=== PATIENT | male | born 1950 | race Asian ===

== ENCOUNTER 2017-04-12 06:36 | Emergency (ER) | payer OTHER ==
[~2017-04-12] VITALS: Ht 182.9 cm; Wt 140.6 kg
[~2017-04-12 06:36] MED LIST: CLOP75TA2 PO; LISITAB PO; NIFE60TA5 PO; ZANTAC 75 PO
[2017-04-12 07:43] VITALS: BP 127/97; TEMP 97.9
== END 2017-04-12 07:44 | disposition home or self-care (01) ==
LOC: ED 06:36
DX: M16.11 Unilateral primary osteoarthritis, right hip (principal); E66.09 Other obesity due to excess calories
CPT/HCPCS: 96372; 99283; J1885

== ENCOUNTER 2017-08-09 00:48 | Emergency (ER) | payer OTHER ==
[~2017-08-09] VITALS: Ht 185.4 cm; Wt 162.4 kg
[2017-08-09 01:37] LABS: PLATELET COUNT 366 K/uL (142-355)
[2017-08-09 01:43] LABS: POTASSIUM 3.6 mmol/L (3.6-5.2)
[2017-08-09 02:10] LABS: PARTIAL THROMBOPLASTIN TIME 24.9 SECONDS (24.5-33.6)
[2017-08-09 02:54] VITALS: TEMP 98.4
[2017-08-09 03:14] VITALS: BP 136/76
== END 2017-08-09 03:34 | disposition short-term general hospital (02) ==
LOC: ED 00:48
DX: I21.4 Non-ST elevation (NSTEMI) myocardial infarction (principal)
CPT/HCPCS: 36415; 80053; 82550; 82553; 84484; 85027; 85610; 85730; 93005; 96372; 99284; J1650

== ENCOUNTER 2017-08-09 03:39 | Outpatient (CLI) | payer OTHER | END 2017-08-09 05:06 | disposition short-term general hospital (02) | LOC: AMB 03:39 | DX: I21.4 Non-ST elevation (NSTEMI) myocardial infarction (principal) | CPT/HCPCS: A0425; A0427 ==

== ENCOUNTER → 2017-08-22 16:58 | Outpatient (CLI) | payer OTHER | END | disposition home or self-care (01) | LOC: AMB 16:58 | DX: R22.0 Localized swelling, mass and lump, head (principal) ==

== ENCOUNTER 2021-02-16 17:48 | Emergency (ER) | payer OTHER ==
[~2021-02-16] VITALS: Ht 185.4 cm; Wt 140.6 kg
[2021-02-16 22:15] VITALS: BP 121/74; TEMP 98.9
== END 2021-02-16 22:15 | disposition home or self-care (01) ==
LOC: ED 17:48
DX: N39.0 Urinary tract infection, site not specified (principal); N30.91 Cystitis, unspecified with hematuria
CPT/HCPCS: 81000; 87077; 87086; 87088; 87186; 99283

== ENCOUNTER 2021-03-04 13:45 | Inpatient (IN) | payer OTHER ==
[~2021-03-04] VITALS: Ht 177.8 cm; Wt 155.7 kg
[2021-03-04] VITALS (17 sets, daily range): BP systolic 58–134; BP diastolic 39–87; TEMP 98.7–99.8
[2021-03-04 14:47] LABS: PLATELET COUNT 360 K/uL (142-355)
[2021-03-04 15:11] LABS: POTASSIUM 3.7 mmol/L (3.6-5.2)
--- NOTE | 2021-03-04 18:25 | NUR ---
PT HR [address] BLAKELY AT BEDSIDE. REC'D ORDER TO GIVE 1 LITER NS BOLUS X1 NOW. ALBUMIN 25% Q6HR X8.
--- NOTE | 2021-03-04 18:38 | NUR ---
FIRST ALBUMIN GIVEN AT THIS TIME.
--- NOTE | 2021-03-04 18:39 | NUR ---
KHLOE RT AT BS. PEEP DECREASED TO 5, TV DECREASED TO 500 PER MD ORDERS.
--- NOTE | 2021-03-04 18:40 | NUR ---
BP 112/59 MAP 71 HR 132 O2 94-95 RR 18
--- NOTE | 2021-03-04 18:42 | NUR ---
DECREASED TIDAL VOLUME TO 500 AND DECREASED PEEP FROM 7 TO 5
[2021-03-04] MEDS ORDERED: METO25TA2 PO (19:05)
[2021-03-04] MEDS ORDERED: PANTOPRAZOLE 40MG TA PO (19:05)
[2021-03-04] MEDS ORDERED: IPRATROPIUM/ INH (19:07)
[2021-03-04] MEDS ORDERED: ONDA4TAB3 PO (19:08)
[2021-03-04] MEDS ORDERED: BUDESONIDE0.5 MG/2 M INH (19:08)
[2021-03-04] MEDS ORDERED: MEDROL4 MG PO (19:08)
[2021-03-04] MEDS ORDERED: IVER3TAB PO (19:10)
--- NOTE | 2021-03-04 20:00 | NUR ---
Patient lying in bed, sedated, with eyes closed. VSS. Bed in low. locked position.
--- NOTE | 2021-03-04 20:05 | NUR ---
OGT inserted. Xray ordered to verify placement.
--- NOTE | 2021-03-04 22:00 | NUR ---
Patient lying in bed, sedated, resting with eyes closed. VSS. Bed in low, locked, position.
--- NOTE | 2021-03-05 | NUR ---
Patient lying in bed, sedated, resting with eyes closed. VSS. Bed in low, locked position.
[2021-03-05 00:01] VITALS: TEMP 97.9
--- NOTE | 2021-03-05 02:00 | NUR ---
Patient lying in bed, sedated, resting in bed. VSS. Bed in low, locked position.
[2021-03-05 02:35] VITALS: BP 133/74; TEMP 97.9; Ht 177.8 cm; Wt 155.7 kg
[2021-03-05 04:00] VITALS: TEMP 97
--- NOTE | 2021-03-05 04:00 | NUR ---
Patient lying in bed, sedated, resting with eyes closed. VSS. Bed in low, ocked position.
[2021-03-05 05:46] LABS: PLATELET COUNT 312 K/uL (142-355)
[2021-03-05 05:58] LABS: POTASSIUM 3.5 mmol/L (3.6-5.2)
--- NOTE | 2021-03-05 06:00 | NUR ---
Patient lying in bed, sedated, resting with eyes closed. VSS. Bed in low, locked position.
--- NOTE | 2021-03-05 08:21 | NUR ---
INCREAESE TIDAL VOLUME FROM 500 TO 550 UPED RR FROM 12 TO 14 AND INCREASED PEEP FOR 5 TO 7
--- NOTE | 2021-03-05 09:23 | NUR ---
PER DR BLAKELY ORDER DR BELTRAN CONSULTED FOR CENTRAL LINE PLACMENT . MESSAGE REC'D FROM DR BELTRAN HE WAS IN ER. AWAITING FURTHER CONTACT. WILL INFORM DR BLAKELY
--- NOTE | 2021-03-05 10:35 | NUR ---
DR RAMOS HERE TO CONSULT ON PT PER DR BLAKELY REQUEST. NO NEW ORDERS REC'D AT THE BEDSIDE WILL INFOMR DR BLAKELY
--- NOTE | 2021-03-05 11:03 | NUR ---
PT'S SALINAS REMAINS CLAMPED TO ATTEMPT TO COLLECT UA FOR LAB TEST. PT HAS NO URINARY OUTPUT FROM BEGINING OF SHIFT TO NOW. WILL CONT TO MONITOR.
--- NOTE | 2021-03-05 14:30 | NUR ---
DR. BELTRAN AT PT'S BEDSIDE TO PLACE CENTRAL LINE AT THIS TIME.
--- NOTE | 2021-03-05 15:00 | NUR ---
CENTRAL LINE TO RT SUBCLAVIN PER STERILE TECHNIQUE. NO DISTRESS OR PROBLEMS NOTED. ORDER PLACED FOR XRAY FOR LINE VERIFICATION,.
--- NOTE | 2021-03-05 18:01 | NUR ---
DR BLAKELY HERE AT THIS TIME. REPORTED TO HIM THAT PTS TEMP READING 94 AXILLARY. PT IS COOL TO THE TOUCH. WARM BLANKETS PLACED ON PT AT THIS TIME. ALL VS WNL AT THIS TIME. WILL CONT TO MONITOR.
--- NOTE | 2021-03-05 20:00 | NUR ---
Patient lying in bed, sedated, with eyes closed. VSS. Bed in low, locked position.
[2021-03-05 21:48] VITALS: TEMP 96.8
--- NOTE | 2021-03-05 22:00 | NUR ---
Patient lying in bed, sedated, with eyes closed. VSS. Bed in low, locked position.
--- NOTE | 2021-03-06 | NUR ---
Patient lying in bed, sedated, with eyes closed. VSS. Bed in low, locked position.
--- NOTE | 2021-03-06 01:52 | NUR ---
Patient lying in bed, sedated, with eyes closed. VSS. Bed in low, locked position.
[2021-03-06 04:00] VITALS: TEMP 97.6
--- NOTE | 2021-03-06 04:00 | NUR ---
Patient lying in bed, sedated, resting with eyes closed. VSS. Bed in low, locked position.
[2021-03-06 05:55] LABS: PLATELET COUNT 279 K/uL (142-355)
--- NOTE | 2021-03-06 08:00 | NUR ---
CRITICAL BUN 100 CREATININE 9.0 AND CALCIUM 6.[address] BLAKELY.
--- NOTE | 2021-03-06 13:00 | NUR ---
SPOKE WITH FAMILY (PTS DAUGHTER TO GIVE UPDATE)
--- NOTE | 2021-03-06 16:30 | NUR ---
RESP 40, PT SUCTIONED WITH INLINE SUCTION, ORAL CAVITY ALSO SUCTIONED, MODERATED AMT OF SECRETIONS REMOVED VIA INLINE. PT HAS WET EXP WHEEZE AT THIS TIME. SATS 88-90%.
--- NOTE | 2021-03-06 17:34 | NUR ---
DR BLAKELY IN TO SEE PT, ORDER RECIEVED
[2021-03-06 20:00] VITALS: TEMP 97.6
--- NOTE | 2021-03-06 23:20 | NUR ---
SPO2 AT 95% ON 100% FIO2. RT DECREASED FIOP2 TO 90%. SPO2 MAINTAINING AT 94-95%. WILL CONTINUE TO MONITOR AND WEAN TOLERATED.
--- NOTE | 2021-03-06 23:31 | NUR ---
LATE ENTRY: FAMILY UPDDATEDD ON PATIENTS CURRENT CONDITION
[2021-03-07] VITALS: TEMP 99.4
[2021-03-07 04:00] VITALS: TEMP 98.1
--- NOTE | 2021-03-07 04:00 | NUR ---
PATIENTS OUTPUT WAS LESS THAN 30MLS AN HOUR. ER DR WREN ORDERED A ONETIME DOSE OF LASIX IV 20MG
--- NOTE | 2021-03-07 05:45 | NUR ---
LAB AT BEDSIDE, BLOOD DRAWN FOR AM LABS. PATIENT IS RESTING COMFORTABBLY
[2021-03-07 05:59] LABS: PLATELET COUNT 258 K/uL (142-355)
--- NOTE | 2021-03-07 06:18 | NUR ---
POST ABG INCREASED PEEP TO 11.
--- NOTE | 2021-03-07 06:36 | NUR ---
PATIENT HAS BEEN READJUSTED IN BED. RESPIRATORY HAS ADDJUSTED HIS VENT SETTINGS AFTER COLLECTING ABG
[2021-03-07 06:37] LABS: POTASSIUM 3.3 mmol/L (3.6-5.2)
[2021-03-07 08:00] VITALS: TEMP 97.5
[2021-03-07 12:00] VITALS: TEMP 98
[2021-03-07 16:00] VITALS: TEMP 97.7
--- NOTE | 2021-03-07 19:57 | NUR ---
1018- SPOKE W/ MULTIPLE FAMILY MEMBERS GAVE UPUDATE TO FAMILY. 1814- UPDATE GIVING TO GRAND DAUGHTER CHERYL, AND HEARD SON IN THE BACKGROUND BARRON MARTÍNEZ JR YELLING PROFANITY STATING HE HAS NOT BEEN ABLE TO CONTACT ICU STAFF ALL DAY WITH AN UPDATE. UPDATE ALSO GIVEN TO THE SON, AND DISCUSSED WTIH HIM THE EMERGENCY CONTACT/PERSON TO RECEIVE UPDATES ON PT. BARRON MASTERSON, THEN STATED THAT HE WOULD BE THE CAREERS COUNSELLOR TO RECEIVE UPDATES. 1822-OLDER DAUGHTER CALLED REQUESTING MEDICAL INFORMATION/UPDATE ON HER DAD, NURSE AT BEDSIDE WITH ANOTHER PT, ANSWERED AND TOLD FAMILY MEMBER THAT AN UPDATE WAS JUST GIVEN TO SON "ELYSIA MASTERSON" WHOM IS NOW THE CAREERS COUNSELLOR THAT NEEDS TO KEEP THE FAMILY UPDATED ON PT'S STATUS, DAUGHTER THEN RESPONDS "WELL HOW YOU DO DAMARIS, I DONT GET IT IF YOU GOTS MY NUMBER ON THERE WHY YOU CANT CALL ME WHATEVER BYE"
--- NOTE | 2021-03-07 20:01 | NUR ---
[address] [facility] FOR CXR [address] DR BLAKELY AT BEDSIDE NEW ORDERS GIVEN TO KEEP MAP AROUND 65. 2000 MULTIPLE FAMILY MEMBERS CALLED THROUGHOUT THIS SHIFT AND 4 OF 10 FAMILY MEMBER HAVE BEEN UPDATED THROUGHOUT THIS SHIFT
--- NOTE | 2021-03-07 20:20 | NUR ---
PT HAS BEEN REPOSTIONED THROUGHOUT THE SHIFT. INLINE AND YAUNKER SUCTION MULTIPLE TIMES THIS SHIFT.
--- NOTE | 2021-03-07 20:48 | NUR ---
PATIENTS SON EMORY CHEEMA JR CALLED TO CHECK ON HIS FATHER. UPDATE GIVEN REGARDING CURRENT CONDITION. PATIENT UPDATE ON LABS AND KIDNEY FUNCTION, URINARY OUTPUT. SON ASKED WHAT WE WERE DOING TO CORRECT HIS KIDNEY FAILURE AND DID EXPLAIN TO SON THAT MEDICATION AND FLUIDS HAVE BEEN GIVEN BUT PATIENTS KIDNEY HAVE NOT RESPONDED TO TREATMENT. FURTHERMORE, EXPLAINED TO SON THAT SEVERAL ATTEMPTS HAVE BEEN MADE TO SEE IF OTHER FACILITIES WOULD ACCEPT PATIENT AND SEVERAL WERE ON DIVERSION AND NOT ACCEPTING PATIENTS AT THIS TIME. SON STATED " IS HIS BRAIN STILL WORKING",SISTER IN THE BACK GROUND GOT ON THE PHONE AND STATED " IF HIS KIDNEYS ARE NOT WORKING WHY ARE THEY KEEPING HIM SEDATED". EXPLAINED TO FAMILY THAT I WOULD LET OR WHOEVER HOSPITALIST WAS PUMP PRESS OPERATOR TOMORROW TO CALL THE FAMILY AND SEE WHERE THEY WERE REGARDING CODE STATUS OF PATIENT. PATIENT IS CURRENTLY A FULL CODE.
[2021-03-08] VITALS (13 sets, daily range): BP systolic 72–129; BP diastolic 46–71; TEMP 97.4–98.5
--- NOTE | 2021-03-08 01:41 | NUR ---
PATIENT REPOSITIONED ON TO HIS RIGHT SIDE WITH PILLOWS ON HIS BACK FOR SUPPORT.
[2021-03-08 05:30] LABS: POTASSIUM 3.3 mmol/L (3.6-5.2)
[2021-03-08 05:41] LABS: PLATELET COUNT 269 K/uL (142-355)
--- NOTE | 2021-03-08 08:30 | NUR ---
LADLouie CALLED REQUESTING INFORMATION ON PT STATING SHE IS PT'S SISTER IN LAW. INFORMED HER CKelley BECK, RN IS A BEDSIDE WITH A PATIENT IF SHE COULD CALL BACK IN A LITTLE BIT.
--- NOTE | 2021-03-08 09:07 | NUR ---
REC'D CALL AGAIN FROM A LADY STATING SHE IS THE PT'S SISTER IN LAW AND WOULD LIKE TO GET AN UPDATE. REQUESTED PT'S PASSWORD. LADLouie ON THE PHONE REPORTS NOT HAVING THE PASSWORD. INFORMED HER THAT I CANNOT RELEASE ANY INFORMATION TO HER AT THIS TIME WITHOUT THE PASSWORD AND SHE COULD CONTACT PT'S FAMILY FOR UPDATE.
--- NOTE | 2021-03-08 09:35 | NUR ---
PT'S SON CALLED FOR DIALY UPDATE. UPDATE GIVEN AT THIS TIME. ALSO CONFIRMED AGAIN PT'S FULL CODE STATUS. THE PT'S SON STATED "I CALL AND THEN GO BACK AND TELL MY 2 SISTERS WAHT YOU SAY". DR BLAKELY CURRENTLY AT MAKING ROUNDS.
--- NOTE | 2021-03-08 09:37 | NUR ---
SPOKE WITH DR BLAKELY CONCERNING BRINGING FAMILY IN TO HAVE AMEETING CONCERNING PT'S OUTCOME AND FULL CODE STATUS. HE REPLIED THAT HE SPOKE WITH ALL CHILDREN YESTERDAY ON THE PHONE. WILL CON'T TO KEEP MD AND FAMILY INFOMRED
--- NOTE | 2021-03-08 11:05 | NUR ---
SPO2 AT 97-98%. DECREASED PEEP TO 10. SPO2 AT 97%. WILL CONTINUE TO MONITOR AND WEAN TOLERATED.
--- NOTE | 2021-03-08 11:30 | NUR ---
DR WADE HERE FOR CONSULT PER MD ORDERS.
--- NOTE | 2021-03-08 12:34 | NUR ---
INFOMRED DR BLAKELY OF BP 87/60 WITH MAP 58 DESPITE INCREASING DOPAMINE TO 2.5MCG. ALL OTHER VS WNL. NEW ORDERS REC'D TO GIVE 500ML BOLUS
--- NOTE | 2021-03-08 12:46 | NUR ---
500ML BOLUS STARTED AT THIS TIME PER MD ORDERS.
--- NOTE | 2021-03-08 13:02 | NUR ---
i spoke with pts son, Vahe Sparrow Jr. [phone], he did provide the password on the chart "[id number]", i was calling to assess the family's wishes for the continued care of Mr. Misty Tipton. He stated that he moved here not long ago from [place] to "take care of my parents". He stated his mother last month at home from a massive heart attack. He stated that he lived with his parents at this time. He also stated he has two sisters, Monica Stevenson and Brittney Kasper. He stated Monica's also recently passed from [place]. He stated he will speak with his sisters and will call us back once that have talked about their wishes for their father. I offered a family meeting in person with Dr. Heard and this typewriter aligner so taht family would have a chance to ask any questions they might have and to let us know about their wishes for their fathers care.
--- NOTE | 2021-03-08 13:15 | NUR ---
BP NOW 115/50 WITH MAP 71 AFTER 500ML BOLUS WILL CONT TO MONITOR.
--- NOTE | 2021-03-08 16:19 | NUR ---
PT'S HR NOTED TO BE IRREG WITH RATE OF 130 DR BLAKELY NOTIFIED AND ORDERS REC'D TO GIVE ANOTHER 500ML BOLUS. INFOMRED PER UR FAMILY COMING TO HAVE A MEETING WITH AND UR
--- NOTE | 2021-03-08 16:58 | NUR ---
DOPAMINE INFUSING VIA PUMP AT 2.5MCG BP OF 72/48 ,AP OF 56. DOPAMINE INCREASED TO 4MCG
--- NOTE | 2021-03-08 17:33 | NUR ---
INFORMED PER SHELBY IN UR FAMILY STATED THEY STILL WANTED "EVERYTHING DONE" AND "TRANSFERED IF BED AVAL", MEETING TOOK PLACE BETWEEN VICKIE MART TERESA, AND DR BLAKELY AND SHELBY
--- NOTE | 2021-03-08 18:00 | NUR ---
INFOMRED PER CASTRO IN UR THAT FAMILY MEETING HAD TAKEN PLACE BETWEEN FAMILY DR BLAKELY AND HERSELF AND PT'S FAMILY AT THIS TIME WANTS PT TO REMAIN A FULL CODE.
--- NOTE | 2021-03-08 18:10 | NUR ---
this service writer and Dr. Heard just completed scehduled family meeting in [facility] consult room at admissions scheduled for 5pm. Present were son, Vahe Sparrow Jr, daughter Monica Stevenson, daughter Brittney Kasper, and in law Alexa. Dr. Heard updated family on pts critical status and current nephrology, cardiac, and pulmonary issues. All questions were answered. This service writer updated family that i have been calling surrounding facilities for transfer and no beds are currently available for COVID ICU patients, and that pt needs urgent dialysis. Dr. Heard informed family that we have consulted 2 different nephrologists and they also have not been able to locate an available bed, but that we are doing everything we can to stabilize pt. I have called the below facilities today looking for bed placement: [facility] [phone] over cap, no beds one step transfer [facility]/ [phone] ext [phone] no covid icu beds [facility] [phone] no beds [facility] [phone] no beds on critical care and cardiac diversion also [place] [phone] [facility] [phone] [facility] beds [facility] [phone] no beds, on diversion [facility] [phone] no beds [facility] [phone] ext [phone] no beds, all facilities [facility] [phone] no beds [facility] [place] beds [place] [phone] no covid icu beds [facility] [phone] no beds. Family verbalizes understanding and appreciative of the care we are providing to their father. [place] [phone] no covid icu beds [facility] [phone] on diversion
--- NOTE | 2021-03-08 20:22 | NUR ---
Dopamine increased to 3 mcg/kg/min for BP of 89/48 MAP: 61. Propofol decreased to 10 mcg/kg/min. Versed decreased to 6 ml/hr.
--- NOTE | 2021-03-08 22:00 | NUR ---
Patient lying in bed, sedated, resting with eyes closed. VSS. Bed in low, locked position.
--- NOTE | 2021-03-09 | NUR ---
Versed adjusted to 0.04 mg/kg/hr (5.6 ml/hr). Patient lying in bed, sedated, resting with eyes closed. VSS. Bed in low, locked position.
[2021-03-09 00:05] VITALS: TEMP 97.4
--- NOTE | 2021-03-09 02:12 | NUR ---
Patient lying in bed, sedated, resting with eyes closed. VSS on hemodynamic drip. Bed in low, locked position.
--- NOTE | 2021-03-09 04:08 | NUR ---
Patient lying in bed, sedated, resting with eyes closed. VSS with hemodynamic drip. Bed in low, locked position.
[2021-03-09 05:10] LABS: PLATELET COUNT 253 K/uL (142-355)
[2021-03-09 05:36] LABS: POTASSIUM 3.8 mmol/L (3.6-5.2)
--- NOTE | 2021-03-09 06:46 | NUR ---
Attempted to notify Dr. Campos of critical calcium, 6.4, creatinine 10.6, and BUN 134, but Dr. Campos unable to come to the phone at this time.
--- NOTE | 2021-03-09 08:00 | NUR ---
RESTING WITH EYES CLOSED. Pt. ON VENT ET TUBE INTACT 25 AT LIP.
--- NOTE | 2021-03-09 09:15 | NUR ---
GAVIN CUMMINS CALLED FROM [facility]. Pt. ARE STILL ON THE LIST FOR TRANSFER.
--- NOTE | 2021-03-09 10:30 | NUR ---
FAMILY CALLED FOR UPDATE. ASK ABOUT THE BED AT [facility]. WILL ASK SISTER AND CALL BACK.
--- NOTE | 2021-03-09 12:30 | NUR ---
FAMILY CALLED. COULDN'T REMEMBER NAME OF PERSON AT [facility]. STATES THEY TOLD US TO CALL THEM BACK. INSTRUCTED TO CALL BACK WITH INFORMATION. Pt. RESTING WITH EYES CLOSED.
[2021-03-09 19:47] VITALS: TEMP 96.6
--- NOTE | 2021-03-09 20:00 | NUR ---
Patient lying in bed, sedated, resting with eyes closed. VSS with hemodynamic drip. Bed in low, locked position.
--- NOTE | 2021-03-09 20:23 | NUR ---
PATIENT SP02 DROPPING TO 88 PEEP INCREASED TO 12 FIO2 INCREASED TO 100. SP02 92
--- NOTE | 2021-03-09 22:00 | NUR ---
Patient lying in bed, sedated, resting with eyes closed tolerating ventilator. VSS with hemodynamic drip. Bed in low, locked position.
[2021-03-10] VITALS: TEMP 98.8
--- NOTE | 2021-03-10 | NUR ---
Patient lying in bed, sedated, resting with eyes closed on ventilator. VSS with hemodynamic drip. Bed in low, locked position.
--- NOTE | 2021-03-10 02:00 | NUR ---
Patient lying in bed, sedated, resting with eyes closed tolerating ventilator. VSS with hemodynamic drip. Bed in low, locked position.
[2021-03-10 04:00] VITALS: TEMP 98; TEMP 98.9
--- NOTE | 2021-03-10 04:00 | NUR ---
Patient lying in bed, sedated, resting with eyes closed on ventilator. VSS with hemodynamic drip. Bed in low, locked position.
[2021-03-10 04:29] LABS: PLATELET COUNT 271 K/uL (142-355)
--- NOTE | 2021-03-10 04:30 | NUR ---
Patient breathing over ventilator. Versed increased to 0.05 mg/kg/hr.
--- NOTE | 2021-03-10 04:45 | NUR ---
VENT ALARMING REBREATHING DETECTED, PATIENT DESATING TO 85, PATIENT SPONTANEOUS RATE AT 20 VENT SET AT 14, I TIME AT 1.3 I:E READING 1:1 RT TURNED VENT RATE TO 10, I TIME TO .8, CHANGED FILTER AND HME, SP02 94, I:E 1:2 RATE AT 29 TOTAL
[2021-03-10 05:00] LABS: POTASSIUM 4.1 mmol/L (3.6-5.2)
--- NOTE | 2021-03-10 09:35 | NUR ---
PT'S SON CALLED FOR UPDATE AND UPDATE GIVEN VIA PHONE. SON ASKING IF HE COULD FACETIME HIS FATHER AT THIS MOMEMTN. EDXPLIAN TO HIM WE WERE GETTING A NEW PT SO I COULD NOT FACETIME AT THIS MOMENT BUT SOON I GOT NEW PT STABLE AND SETTLED I WOULD USE MY PHONE TO FACETIME FAMILY AND PT. SON HUNG UP PHONE AT THIS TIME.,
--- NOTE | 2021-03-10 10:02 | NUR ---
PT'S GRANDDAUGHTER CALLED AND WANTED AND UPDATE. EXPLAIONED TO HER THAT THE PT'S SON HAD JSUT CALLED FOR UPDATE WHICH WAS GIVEN TO HIM, I DID ASK FOR THEM TO PLEASE GET WTIH ONE ANOTHER AND DISCUSS DAILY UPDATES.
--- NOTE | 2021-03-10 13:30 | NUR ---
SPOKE WITH PT'S DAUGHTER ON PHONE. UPDATE GIVEN AT THIS TIME.
--- NOTE | 2021-03-10 18:00 | NUR ---
PT NOTED TO HAVE APPROX 250 ML OF URINE NOTED IN SALINAS BAG SEDIMENT NOTED. SALINAS IRRIAGATED SEVERAL TIMES THIS SHIFT. NO NEW PROBLEMS THIS SHIFT VS REMAINED STABLE
--- NOTE | 2021-03-10 18:40 | NUR ---
PT'S SON CALLED FOR UPDATE AND UPDATE GIVEN AT THIS TIME. ALL QUESTIONS ANSWERED. PT'S SON THEN ASKED IF I COULD FACETIME HIM AND HIS FATHER AND WHILE ATTEMPTING TO EXPLAIN TO HIM THAT WE WERE ABOUT TO START REPROT IN 5 MINS ONCE AGAIN HE HUNG UP WHILE I WAS TRYING TO EDXPLAIN.
[2021-03-10 20:00] VITALS: TEMP 97.5
--- NOTE | 2021-03-10 20:00 | NUR ---
Patient lying in bed, sedated, resting with eyes closed tolerating ventilator. VSS with hemodynamic drip. Bed in low, locked position.
--- NOTE | 2021-03-10 22:00 | NUR ---
Patient lying in bed, sedated, resting with eyes closed tolerating ventilator. VSS with hemodynamic drip. Bed in low, locked position. Daughter called and updated on patient condition. Phone was put to patient's ear for daughter to talk to patient.
[2021-03-11] VITALS: TEMP 97.2
--- NOTE | 2021-03-11 | NUR ---
Patient lying in bed, sedated, resting with eyes closed tolerating ventilator. VSS with hemodynamic drip. Bed in low, locked position.
--- NOTE | 2021-03-11 02:00 | NUR ---
Patient lying in bed, sedated, resting with eyes closed tolerating ventilator. VSS with hemodynamic drip. Bed in low, locked position.
[2021-03-11 04:00] VITALS: TEMP 96.4
--- NOTE | 2021-03-11 04:00 | NUR ---
Patient lying in bed, sedated, resting with eyes closed. VSS with hemodynamic drip. Bed in low, locked position.
[2021-03-11 04:22] LABS: PLATELET COUNT 254 K/uL (142-355)
[2021-03-11 04:50] LABS: POTASSIUM 4.8 mmol/L (3.6-5.2)
--- NOTE | 2021-03-11 06:36 | NUR ---
Reported critical BUN of [address] Schmidt in the ED.
[2021-03-11 08:00] VITALS: TEMP 96.5
--- NOTE | 2021-03-11 10:06 | NUR ---
INCREASED FIO2 TO 100% SPO2 AT 87% RR 27 PEEP AT 12
--- NOTE | 2021-03-11 10:30 | NUR ---
CALLED AND GAVE PTS SON EMORY CHEEMA JR AN UPDATE ON PTS STATUS
[2021-03-11 12:00] VITALS: TEMP 97.9
--- NOTE | 2021-03-11 12:11 | NUR ---
INCREASE IN DOPAMINE 5MCG/KG/MIN DUE TO DECREASE IN BP 89/49
--- NOTE | 2021-03-11 15:18 | NUR ---
09 DR. BLAKELY AT BEDSIDE. RADIOLOGY AT BEDSIDE FOR CHEST XRAY. 09 XRAY COMPLETED. VENTILATOR ALARMING. PROPOFOL INFUSION RATE AT 15MCG/KG/MIN, VERSED INFUSING AT 10ML/HR 0955 PT'S RESPIRATION NOTED TO BE 26, VENTILATOR RATE SET AT 9 1005 RESPIRATORY AT BEDSIDE, FIO2 INCREASED TO 100%. VERSED INFUSION RATE DECREASED TO 7ML/HR 1202 DOPAMINE INFUSION RATE INCREASED TO 5MCG/KG 1231 PATIENT'S SPO2 DECREASED TO 86-88%, ERASMO, RT, PROVIDING ARTIFICIAL VENTILATION VIA AMBUBAG, SPO2 INCREASED 90-91% 1233 ERASMO, RT, CHANGED HME AT THIS TIME 1315 MOUTHCARE PROVIDED AND ORAL CAVITY SUCTION, DIPRIVAN INCREASED TO 16MCG/KG/MIN, RESPIRATTIONS INCREASE, MONITOR ONLY ON RECTAL TEMP NOTED TO BE 98.6 AT THIS TIME 1345 SPOKE WITH [facility] FUEL DISTRIBUTION SYSTEM OPERATOR, NOTIFIED DR. BLAKELY TO EXPECT A TO DR PHONE CALL 1450 [address] ORDERS FROM [address]. BLAKELY FOR LASIX 120MG VIA IVP, NOTED AND CARRIED OUT 1454 LASIX 120MG ADMINISTERED VIA IVP WITHOUT DIFFICULTY, BP 77/45, SPO2 DECREASED TO 70'S, RESPIRATIONS 31, DUPAMINE INFUSION RATE INCREASED TO 7MCG/KG/MIN 1456 BP 135/56, DOPAMINE INFUSION RATE DECREASED TO 5MCG/KG/MIN 1517 BURT PFEIFFER RN, GIVING REPORT TO ARMINDA OCHOA RN, @ [facility]
[2021-03-11 16:00] VITALS: TEMP 99.2
--- NOTE | 2021-03-11 16:59 | NUR ---
PT TRANSPORTE VIA EMS TO [facility].
--- NOTE | 2021-03-11 17:03 | NUR ---
PT SON NOTIFIED THAT PT HAD BEEN TRANSFERRED TO [facility]. TO RM 110. TO THE CARE OF DR PORRAS
== END 2021-03-11 16:45 | disposition short-term general hospital (02) | DRG 4 ==
LOC: ED 13:52 → ICU 15:59 → UNDODEPER 03-05 17:58 → ICU 03-11 16:45
PROVIDERS: Emergency Medicine Emergency Medical Services; ADMIT Internal Medicine Endocrinology, Diabetes & Metabolism; ATTEND Internal Medicine Endocrinology, Diabetes & Metabolism
PROC: 5A1955Z Respiratory Ventilation, Greater than 96 Consecutive Hours (ICD-10-PCS; principal; 2021-03-04)
PROC: 0B113F4 Bypass Trachea to Cutaneous with Tracheostomy Device, Percutaneous Approach (ICD-10-PCS; 2021-03-04)
PROC: 05H533Z Insertion of Infusion Device into Right Subclavian Vein, Percutaneous Approach (ICD-10-PCS; 2021-03-05)
DX: U07.1 COVID-19 (principal); J12.82 Pneumonia due to coronavirus disease 2019; J96.01 Acute respiratory failure with hypoxia; I21.4 Non-ST elevation (NSTEMI) myocardial infarction; E43 Unspecified severe protein-calorie malnutrition; N17.8 Other acute kidney failure; E11.9 Type 2 diabetes mellitus without complications; I10 Essential (primary) hypertension; I25.10 Atherosclerotic heart disease of native coronary artery without angina pectoris; I87.8 Other specified disorders of veins; E83.51 Hypocalcemia
CPT/HCPCS: 31500; 36591; 36600; 43754; 51702; 80053; 81000; 82805; 83605; 83735; 83880; 84484; 85007; 85027; 87040; 87635; 93005; 94002; 94003; 94640; 94664; 94760; 96360; 96361; 96365; 96366; 96368; 96375; 99285; J0330; J0456; J0610; J0696; J1100; J1265; J1644; J1720; J1815; J1940; J2250; J3480; J3490; P9047; U0003